=== PATIENT | female | born 1970 | race Caucasian/White ===

== ENCOUNTER 2017-10-13 07:27 | Day surgery (SDC) | payer MEDICAID ==
[2017-10-13] MEDS: LIDOCAINE 1% (MPF) 5 ML VIAL (10:40)
== END 2017-10-13 12:48 | disposition home or self-care (01) ==
LOC: SDS 07:27
DX: J90 Pleural effusion, not elsewhere classified (principal); C50.912 Malignant neoplasm of unspecified site of left female breast
CPT/HCPCS: 32555; 71045; 76942

== ENCOUNTER 2017-10-20 08:20 | Inpatient (IN) | payer MEDICAID ==
[2017-10-20] MEDS: LIDOCAINE 1% (MPF) 5 ML VIAL (10:04)
[2017-10-20] MEDS ORDERED: NITROGLYCERIN (SL) 0.4 MG TAB SL (13:30)
[2017-10-20] MEDS: ASPIRIN 81 MG TAB PO (14:53)
[2017-10-20 16:11] LABS: ADD MAN DIFF? NO
[2017-10-20 16:17] LABS: BASOPHIL # 0.1 10^3/ul (0.0-0.1); BASOPHILS % 0.9 % (0.0-2.0); EOSINOPHILS # 0.2 10^3/ul (0.0-0.5); EOSINOPHILS % 3.1 % (0.0-7.0); HEMATOCRIT 38.7 % (37.0-47.0); HEMOGLOBIN 11.9 g/dl (12.0-16.0); LYMPHOCYTES # 0.7 10^3/ul (0.8-2.9); LYMPHOCYTES % 10.4 % (15.0-51.0); MEAN CORPUSCULAR HEMOGLOBIN 25.3 pg (29.0-33.0); MEAN CORPUSCULAR HGB CONC 30.7 g/dl (32.0-37.0); MEAN CORPUSCULAR VOLUME 82.2 fl (82.0-101.0); MEAN PLATELET VOLUME 10.1 fl (7.4-10.4); MONOCYTE # 0.5 10^3/ul (0.3-0.9); MONOCYTES % 6.7 % (0.0-11.0); NEUTROPHIL # 5.5 10^3/ul (1.6-7.5); NEUTROPHILS % 78.8 % (39.0-77.0); PLATELET COUNT 306 10^3/UL (140-415); RED BLOOD COUNT 4.71 10^6/ul (4.20-5.40); RED CELL DISTRIBUTION WIDTH 18.7 % (11.5-14.5)
[2017-10-20 16:41] LABS: ANION GAP 10 (8-16); BLOOD UREA NITROGEN 5 mg/dl (7-20); CALCIUM 8.9 mg/dl (8.4-10.2); CARBON DIOXIDE 28 mmol/L (21-31); CHLORIDE 106 mmol/L (97-110); CREATINE KINASE 25 IU/L (23-200); GLUCOSE 102 mg/dl (70-220); SODIUM 140 mmol/L (135-144)
[2017-10-20 16:48] LABS: CK INDEX 0.9
[2017-10-20 16:50] LABS: CK-MB < 0.22 ng/ml (0.0-2.4)
[2017-10-20 16:54] LABS: TROPONIN-I < 0.012 ng/ml (0.00-0.12)
[2017-10-20 20:43] LABS: CREATINE KINASE 22 IU/L (23-200)
[2017-10-20 21:02] LABS: CK-MB < 0.22 ng/ml (0.0-2.4); TROPONIN-I < 0.012 ng/ml (0.00-0.12)
[2017-10-20] MEDS: FAMOTIDINE 20 MG TAB PO (21:39)
[2017-10-21] MEDS: ACETAMINOPHEN 325 MG TAB PO (06:09)
[2017-10-21 07:25] LABS: ADD MAN DIFF? NO
[2017-10-21 07:33] LABS: BASOPHIL # 0.1 10^3/ul (0.0-0.1); EOSINOPHILS # 0.3 10^3/ul (0.0-0.5); EOSINOPHILS % 5.1 % (0.0-7.0); HEMATOCRIT 37.1 % (37.0-47.0); HEMOGLOBIN 11.4 g/dl (12.0-16.0); LYMPHOCYTES # 0.7 10^3/ul (0.8-2.9); LYMPHOCYTES % 14.3 % (15.0-51.0); MEAN CORPUSCULAR HEMOGLOBIN 25.4 pg (29.0-33.0); MEAN CORPUSCULAR HGB CONC 30.7 g/dl (32.0-37.0); MEAN CORPUSCULAR VOLUME 82.6 fl (82.0-101.0); MEAN PLATELET VOLUME 9.9 fl (7.4-10.4); MONOCYTE # 0.5 10^3/ul (0.3-0.9); MONOCYTES % 9.1 % (0.0-11.0); NEUTROPHIL # 3.5 10^3/ul (1.6-7.5); NEUTROPHILS % 70.3 % (39.0-77.0); PLATELET COUNT 294 10^3/UL (140-415); RED BLOOD COUNT 4.49 10^6/ul (4.20-5.40); RED CELL DISTRIBUTION WIDTH 18.6 % (11.5-14.5)
[2017-10-21 07:49] LABS: HEMOGLOBIN A1C 4.8 % (0-5.9)
[2017-10-21 07:50] LABS: ANION GAP 11 (8-16); BLOOD UREA NITROGEN 10 mg/dl (7-20); CALCIUM 8.6 mg/dl (8.4-10.2); CARBON DIOXIDE 26 mmol/L (21-31); CHLORIDE 107 mmol/L (97-110); CHOL/HDL RATIO 2.7 RATIO; CHOLESTEROL 128 mg/dl (100-200); CREATININE 0.59 mg/dl (0.44-1.00); GLUCOSE 83 mg/dl (70-220); HDL CHOLESTEROL 46 mg/dl (34-88); LDL CHOLESTEROL,CALCULATED 63 mg/dl; MAGNESIUM 1.9 mg/dl (1.7-2.5); SODIUM 140 mmol/L (135-144); TRIGLYCERIDES 95 mg/dl (0-149)
[2017-10-21] MEDS: FAMOTIDINE 20 MG TAB PO ×2 (08:59→21:18)
[2017-10-21] MEDS: ASPIRIN 81 MG TAB PO (08:59)
[2017-10-21 14:49] LABS: INR 1.03; PROTIME 13.6 Sec (11.9-14.9); PT RATIO 1.1
[2017-10-21 14:50] LABS: PARTIAL THROMBOPLASTIN TIME 31.8 Sec (25.0-35.0)
[2017-10-21] MEDS: morphine 2 MG INJ IV ×3 (15:26→21:18)
[2017-10-21] MEDS: SOD CHLORIDE 0.9% 100 ML (20:20)
[2017-10-21] MEDS: LIDOCAINE 1% (MDV) 20 ML INJ (20:21)
[2017-10-22] MEDS: morphine 4 MG/ML VIAL IV ×2 (00:18→12:51)
[2017-10-22] MEDS: FAMOTIDINE 20 MG TAB PO ×2 (09:51→20:57)
[2017-10-22] MEDS: ASPIRIN 81 MG TAB PO (09:51)
[2017-10-22] MEDS: NACL 0.9% 3 ML SYG IV (09:52)
[2017-10-22] MEDS: ONDANSETRON 4 MG INJ IV (19:36)
[2017-10-23] MEDS: ASPIRIN 81 MG TAB PO (08:29)
[2017-10-23] MEDS: FAMOTIDINE 20 MG TAB PO ×2 (08:29→20:37)
[2017-10-23] MEDS: ALBUTEROL 0.083% (NEB) 2.5 MG/3 ML AMP HHN ×2 (14:21→19:22)
[2017-10-23] MEDS: ACETAMINOPHEN 325 MG TAB PO (18:22)
[2017-10-24] MEDS: ALBUTEROL 0.083% (NEB) 2.5 MG/3 ML AMP HHN ×4 (01:43→19:45)
[2017-10-24] MEDS: GUAIFENESIN/CODEINE 5ML CUP PO ×3 (01:55→20:37)
[2017-10-24] MEDS: FAMOTIDINE 20 MG TAB PO ×2 (08:03→20:37)
[2017-10-24] MEDS: ASPIRIN 81 MG TAB PO (08:03)
[2017-10-24] MEDS ORDERED: morphine 2 MG INJ IV (11:00)
[2017-10-25] MEDS: ALBUTEROL 0.083% (NEB) 2.5 MG/3 ML AMP HHN ×4 (02:11→19:26)
[2017-10-25] MEDS: GUAIFENESIN/CODEINE 5ML CUP PO ×3 (02:54→22:09)
[2017-10-25] MEDS: FAMOTIDINE 20 MG TAB PO ×2 (09:04→20:13)
[2017-10-25] MEDS: ASPIRIN 81 MG TAB PO (09:06)
[2017-10-26] MEDS: ALBUTEROL 0.083% (NEB) 2.5 MG/3 ML AMP HHN ×4 (01:53→19:40)
[2017-10-26] MEDS: GUAIFENESIN/CODEINE 5ML CUP PO ×3 (08:03→22:56)
[2017-10-26] MEDS: ASPIRIN 81 MG TAB PO (08:04)
[2017-10-26] MEDS: FAMOTIDINE 20 MG TAB PO ×2 (08:04→20:09)
[2017-10-27] MEDS: ALBUTEROL 0.083% (NEB) 2.5 MG/3 ML AMP HHN ×4 (02:08→19:17)
[2017-10-27] MEDS: ASPIRIN 81 MG TAB PO (08:14)
[2017-10-27] MEDS: FAMOTIDINE 20 MG TAB PO ×2 (08:14→20:47)
[2017-10-27] MEDS: HYDROmorphONE 1 MG/ML SYG IV ×3 (09:41→22:56)
[2017-10-27] MEDS ORDERED: FENTAnyl 50 MCG/ML VIAL (10:11)
[2017-10-27] MEDS: ACETAMINOPHEN 325 MG TAB PO (11:39)
[2017-10-28] MEDS: ALBUTEROL 0.083% (NEB) 2.5 MG/3 ML AMP HHN ×4 (01:02→20:13)
[2017-10-28] MEDS: ACETAMINOPHEN 325 MG TAB PO (01:35)
[2017-10-28 08:16] LABS: ADD MAN DIFF? NO
[2017-10-28 08:20] LABS: WHITE BLOOD COUNT 4.2 10^3/ul (4.8-10.8)
[2017-10-28 08:20] LABS: ABNORMAL IP MESSAGE 1; EOSINOPHILS # 0.4 10^3/ul (0.0-0.5); HEMATOCRIT 38.4 % (37.0-47.0); HEMOGLOBIN 11.7 g/dl (12.0-16.0); LYMPHOCYTES # 0.5 10^3/ul (0.8-2.9); LYMPHOCYTES % 12.4 % (15.0-51.0); MEAN CORPUSCULAR HEMOGLOBIN 25.4 pg (29.0-33.0); MEAN CORPUSCULAR HGB CONC 30.5 g/dl (32.0-37.0); MEAN CORPUSCULAR VOLUME 83.3 fl (82.0-101.0); MEAN PLATELET VOLUME 9.8 fl (7.4-10.4); MONOCYTE # 0.3 10^3/ul (0.3-0.9); MONOCYTES % 7.4 % (0.0-11.0); NEUTROPHIL # 2.9 10^3/ul (1.6-7.5); PLATELET COUNT 315 10^3/UL (140-415); RED BLOOD COUNT 4.61 10^6/ul (4.20-5.40); RED CELL DISTRIBUTION WIDTH 18.2 % (11.5-14.5)
[2017-10-28 08:29] LABS: POSITIVE DIFF @See below
[2017-10-28] MEDS: FAMOTIDINE 20 MG TAB PO ×2 (08:31→20:12)
[2017-10-28] MEDS: ASPIRIN 81 MG TAB PO (08:31)
[2017-10-28 08:41] LABS: ANION GAP 11 (8-16); BLOOD UREA NITROGEN 18 mg/dl (7-20); CALCIUM 8.5 mg/dl (8.4-10.2); CARBON DIOXIDE 29 mmol/L (21-31); CHLORIDE 102 mmol/L (97-110); GLUCOSE 99 mg/dl (70-220); MAGNESIUM 2.1 mg/dl (1.7-2.5); POTASSIUM 3.9 mmol/L (3.5-5.1); SODIUM 138 mmol/L (135-144)
[2017-10-28] MEDS: HYDROmorphONE 1 MG/ML SYG IV ×3 (09:38→20:12)
[2017-10-29] MEDS: HYDROmorphONE 1 MG/ML SYG IV ×4 (01:55→16:36)
[2017-10-29] MEDS: ALBUTEROL 0.083% (NEB) 2.5 MG/3 ML AMP HHN ×4 (02:00→21:47)
[2017-10-29] MEDS: FAMOTIDINE 20 MG TAB PO ×2 (08:25→21:06)
[2017-10-29] MEDS: ASPIRIN 81 MG TAB PO (08:25)
[2017-10-30] MEDS: ALBUTEROL 0.083% (NEB) 2.5 MG/3 ML AMP HHN ×4 (01:37→15:11)
[2017-10-30] MEDS ORDERED: GUAIFENESIN 20 MG/ML 5ML CUP ×2 (04:43→04:44)
[2017-10-30] MEDS: GUAIFENESIN/CODEINE 5ML CUP PO ×2 (05:28→13:26)
[2017-10-30] MEDS: ASPIRIN 81 MG TAB PO (08:48)
[2017-10-30] MEDS: FAMOTIDINE 20 MG TAB PO (08:48)
[2017-10-30] MEDS: HYDROmorphONE 1 MG/ML SYG IV ×2 (09:36→14:47)
== END 2017-10-30 16:31 | disposition home or self-care (01) | DRG 181 ==
LOC: MS1 10-29 18:35 → SDS 08:20 → TEL 10-26 20:56 → SDS 13:29 → REC 13:55 → TEL 14:08
PROC: 0W9930Z Drainage of Right Pleural Cavity with Drainage Device, Percutaneous Approach (ICD-10-PCS; principal; 2017-10-27 09:45)
PROC: 0W9B3ZX Drainage of Left Pleural Cavity, Percutaneous Approach, Diagnostic (ICD-10-PCS; 2017-10-27 09:45)
DX: J91.0 Malignant pleural effusion (principal); J93.83 Other pneumothorax; C78.00 Secondary malignant neoplasm of unspecified lung; C50.912 Malignant neoplasm of unspecified site of left female breast; Z92.21 Personal history of antineoplastic chemotherapy; Z90.11 Acquired absence of right breast and nipple
CPT/HCPCS: 71045; 75989; 76942; 80048; 80061; 82550; 82553; 83036; 83735; 84443; 84484; 85025; 85610; 85730; 93306; 94640; 94664